=== PATIENT | female | born 2000 | race Caucasian/White ===

== ENCOUNTER 2020-04-26 03:43 | Emergency (ER) | payer BC ==
[2020-04-26] MEDS ORDERED: Sodium Chloride 0.9% 2.5 ML Syringe FLUSH PRN (04:19)
[2020-04-26] MEDS ORDERED: Sodium Chloride 0.9% 10 ML Syringe FLUSH PRN (04:19)
--- NOTE | 2020-04-26 04:27 | EDM.PDOC ---
ED HPI GENERAL MEDICAL PROBLEM - General Chief Complaint: Abdominal Pain Stated Complaint: LOWER LT PELVIC PAIN Time Seen by Provider: 04/26/20 03:51 Source of Information: Reports: Patient History Limitations: Reports: No Limitations - History of Present Illness INITIAL COMMENTS - FREE TEXT/NARRATIVE: 20-year-old female with past medical history of IUD placement and endometriosis presenting with pelvic pain and vaginal bleeding. She reports a 4-day history of bilateral low pelvic pain radiating to the bilateral lower back. This became much more severe around 4 hours prior to arrival. She developed vaginal spotting about 3 to 4 hours ago as well which she was not having for the past few days. She reports that she had her IUD placed about 3 months ago and has not had any vaginal bleeding up until today. She reports no fever, chills, nausea, vomiting, diarrhea, dysuria, urinary frequency, hematuria, vaginal itching or discharge. No other complaints. lower abdominal area Pain Score (Numeric/FACES): 8 - Related Data Allergies Allergy/AdvReac Type Severity Reaction Status Date / Time Penicillins Allergy Hives Verified 04/26/20 03:53 Home Meds: Home Meds Iud 04/26/20 [History] Past Medical History HEENT History: Reports: None Cardiovascular History: Reports: None Respiratory History: Reports: None Gastrointestinal History: Reports: None Genitourinary History: Reports: None BUSINESS SERVICES REPRESENTATIVE History: Reports: Endometriosis Other BUSINESS SERVICES REPRESENTATIVE History: IUD in place Musculoskeletal History: Reports: None Neurological History: Reports: None Psychiatric History: Reports: Anxiety, Depression Endocrine/Metabolic History: Reports: None Insulin Pump Model and Art Studio Teacher: None Hematologic History: Reports: None Immunologic History: Reports: None Oncologic (Cancer) History: Reports: None Dermatologic History: Reports: None - Infectious Disease History Infectious Disease History: Reports: None - Past Surgical History Head Surgeries/Procedures: Reports: None HEENT Surgical History: Reports: Adenoidectomy, Oral Surgery, Tonsillectomy, Other (See Below) GI Surgical History: Reports: None Social & Family History - Family History Family Medical History: Noncontributory - Tobacco Use Smoking Status *Q: Never Smoker - Caffeine Use Caffeine Use: Reports: Soda - Recreational Drug Use Recreational Drug Use: No ED ROS GENERAL - Review of Systems Review Of Systems: See Below Constitutional: Denies: Fever, Chills HEENT: Reports: No Symptoms Respiratory: Denies: Shortness of Breath Cardiovascular: Denies: Chest Pain Endocrine: Reports: No Symptoms GI/Abdominal: Reports: Abdominal Pain : Reports: Other (Vaginal spotting). Denies: Discharge, Dysuria, Flank Pain, Hematuria, Incontinence, Pain, Urgency, Urinary Retention Musculoskeletal: Reports: Back Pain Skin: Denies: Pruritis, Lesions Neurological: Denies: Headache Psychiatric: Reports: No Symptoms Hematologic/Lymphatic: Reports: No Symptoms Immunologic: Reports: No Symptoms ED EXAM, RENAL/ - Physical Exam Exam: See Below Text/Narrative:: Vital signs reviewed. Nursing notes reviewed. Constitutional: Awake, alert, non-distressed. Head: Normocephalic, atraumatic. Eyes: EOMI, conjunctiva normal, no discharge, no scleral icterus. Ears, Nose, Throat: External ears and nose normal, moist oral mucosa. Cardiovascular: 2+ radial pulse, capillary refill less than 2 seconds. Pulmonary: normal work of breathing, no accessory muscle use. Abdomen/GI: Soft, mild bilateral low abdominal pain, nondistended, no guarding or rigidity, no masses. Musculoskeletal: No deformities. Integumentary: Appropriate color for ethnicity, warm, dry, no pallor or jaundice, no rash. Neurologic: Alert, answering questions appropriately, normal speech, no facial droop, moving all extremities well. Psychiatric: Appropriate mood and affect, normal thought process. (Female) Exam: Normal External Exam, Vaginal Bleeding. No: Cervical Dilatation, Cervical Discharge, Cervical Lesions, Vaginal Discharge, Vaginal Lesions, Vaginal Tears Course - Vital Signs Text/Narrative:: Patient hemodynamically stable, afebrile, well-appearing, looks nontoxic. Differential diagnosis includes but is not limited to: Ectopic , dy sfunctional uterine bleeding, endometriosis, fibroids, coagulopathy, anemia, malignancy, STD/STI, cervicitis, UTI, pyelonephritis, etc. Speculum exam revealed a very tiny amount of dried blood but no active hemorrhage, no vaginal discharge, no cervical discharge/bleeding or abnormalities noted visually. Transvaginal pelvic ultrasound was unremarkable, normal blood flow visualized to both ovaries. CBC, INR, BMP reassuring. Normal hemoglobin. Urinalysis shows moderate blood, trace ketones, and small urobilinogen. No evidence of infection. Patient was treated with oral Percocet and felt better. Presentation seems consistent with dysfunctional uterine bleeding, endometriosis could also potentially be complicating the patient's presentation and causing some pain. Abdomen is soft and minimally tender, patient is vitally stable so my suspicion for surgical emergency or other intra-abdominal catastrophe is quite low at this moment. Patient already has a hormonal IUD in place and theref ore oral contraceptive therapy is obviated at this point. I would like for her to follow-up with her outside machinist helper or a local gynecology clinic in the next 1 to 2 weeks for reevaluation. Recommended [id number] ibuprofen and Tylenol as needed for pain. Plan: Patient is stable to discharge home with outpatient primary care or gynecology clinic follow-up. Strict emergency department return precautions were provided, patient indicated understanding. All questions were answered prior to departure. Discharged in good condition. Last Recorded V/S: Last Vital Signs Temp 36.2 C 04/26/20 05:00 Pulse 88 04/26/20 05:00 Resp 18 04/26/20 05:00 BP 110/80 04/26/20 05:00 Pulse Ox 98 04/26/20 05:00 - Orders/Labs/Meds Orders: Active Orders 24 hr Category Date Time Status Pelvic Exam, Set Up [RC] ASDIRECTED Care 04/26/20 04:23 Active Pulse Oximetry [RC] ASDIRECTED Care 04/26/20 04:19 Active CHLAMYDIA AND GONORRHEA BY TMA Stat Lab 04/26/20 04:45 Received Saline Lock Insert [OM.PC] Stat Oth 04/26/20 04:20 Ordered Labs: Laboratory Tests 04/26/20 04/26/20 04/26/20 Range/Units 03:55 03:55 04:30 WBC (4.0-11.0) K/uL RBC (4.30-5.90) M/uL Hgb (12.0-16.0) g/dL Hct (36.0-46.0) % MCV (80.0-98.0) fL MCH (27.0-32.0) pg MCHC (31.0-37.0) g/dL RDW Std Deviation (28.0-62.0) fl RDW Coeff of Cassius (11.0-15.0) % Plt Count (150-400) K/uL MPV (7.40-12.00) fL Neut % (Auto) (48.0-80.0) % Lymph % (Auto) (16.0-40.0) % [place] % (Auto) (0.0-15.0) % Eos % (Auto) (0.0-7.0) % Baso % (Auto) (0.0-1.5) % Neut # (Auto) (1.4-5.7) K/uL Lymph # (Auto) (0.6-2.4) K/uL [place] # (Auto) (0.0-0.8) K/uL Eos # (Auto) (0.0-0.7) K/uL Baso # (Auto) (0.0-0.1) K/uL Nucleated RBC % /100WBC Nucleated RBCs # K/uL INR 0.99 Sodium (136-145) mmol/L Potassium (3.5-5.1) mmol/L Chloride (98-107) mmol/L Carbon Dioxide (21.0-32.0) mmol/L BUN (7.0-18.0) mg/dL Creatinine (0.6-1.0) mg/dL Est Cr Clr Drug Dosing mL/min Estimated GFR (MDRD) ml/min Glucose (74-106) mg/dL Calcium (8.5-10.1) mg/dL Urine Color YELLOW Urine Appearance CLOUDY Urine pH 7.5 (5.0-8.0) Ur Specific [place] 1.020 (1.001-1.035) Urine Protein NEGATIVE (NEGATIVE) mg/dL Urine Glucose (UA) NEGATIVE (NEGATIVE) mg/dL Urine Ketones TRACE H (NEGATIVE) mg/dL Urine Occult Blood MODERATE H (NEGATIVE) Urine Nitrite NEGATIVE (NEGATIVE) Urine Bilirubin NEGATIVE (NEGATIVE) Urine Urobilinogen 2.0 H (<2.0) EU/dL Ur Leukocyte Esterase NEGATIVE (NEGATIVE) Urine RBC 1-3 (0-2/HPF) Urine WBC 0-2 (0-5/HPF) Ur Epithelial Cells FEW (NONE-FEW) Amorphous Sediment MODERATE (NEGATIVE) Urine Bacteria FEW (NEGATIVE) Urine HCG, Qual NEGATIVE (NEGATIVE) Lety species DNA (NEGATIVE) Gardnerella DNA Probe (NEGATIVE) Trichomonas DNA Probe (NEGATIVE) 04/26/20 04/26/20 04/26/20 Range/Units 04:30 04:30 04:45 WBC 6.95 (4.0-11.0) K/uL RBC 4.84 (4.30-5.90) M/uL Hgb 14.3 (12.0-16.0) g/dL Hct 42.5 (36.0-46.0) % MCV 87.8 (80.0-98.0) fL MCH 29.5 (27.0-32.0) pg MCHC 33.6 (31.0-37.0) g/dL RDW Std Deviation 39.4 (28.0-62.0) fl RDW Coeff of Cassius 12 (11.0-15.0) % Plt Count 264 (150-400) K/uL MPV 10.70 (7.40-12.00) fL Neut % (Auto) 61.1 (48.0-80.0) % Lymph % (Auto) 29.4 (16.0-40.0) % [place] % (Auto) 8.5 (0.0-15.0) % Eos % (Auto) 0.6 (0.0-7.0) % Baso % (Auto) 0.4 (0.0-1.5) % Neut # (Auto) 4.3 (1.4-5.7) K/uL Lymph # (Auto) 2.0 (0.6-2.4) K/uL [place] # (Auto) 0.6 (0.0-0.8) K/uL Eos # (Auto) 0.0 (0.0-0.7) K/uL Baso # (Auto) 0.0 (0.0-0.1) K/uL Nucleated RBC % 0.0 /100WBC Nucleated RBCs # 0 K/uL INR Sodium 138 (136-145) mmol/L Potassium 3.5 (3.5-5.1) mmol/L Chloride 103 (98-107) mmol/L Carbon Dioxide 23.1 (21.0-32.0) mmol/L BUN 12 (7.0-18.0) mg/dL Creatinine 1.0 (0.6-1.0) mg/dL Est Cr Clr Drug Dosing 76.47 mL/min Estimated GFR (MDRD) > 60.0 ml/min Glucose 94 (74-106) mg/dL Calcium 9.2 (8.5-10.1) mg/dL Urine Color Urine Appearance Urine pH (5.0-8.0) Ur Specific [place] (1.001-1.035) Urine Protein (NEGATIVE) mg/dL Urine Glucose (UA) (NEGATIVE) mg/dL Urine Ketones (NEGATIVE) mg/dL Urine Occult Blood (NEGATIVE) Urine Nitrite (NEGATIVE) Urine Bilirubin (NEGATIVE) Urine Urobilinogen (<2.0) EU/dL Ur Leukocyte Esterase (NEGATIVE) Urine RBC (0-2/HPF) Urine WBC (0-5/HPF) Ur Epithelial Cells (NONE-FEW) Amorphous Sediment (NEGATIVE) Urine Bacteria (NEGATIVE) Urine HCG, Qual (NEGATIVE) Lety species DNA NEGATIVE (NEGATIVE) Gardnerella DNA Probe NEGATIVE (NEGATIVE) Trichomonas DNA Probe NEGATIVE (NEGATIVE) Meds: Medications Discontinued Medications Generic Name Dose Route Start Last Admin Trade Name Freq PRN Reason Stop Dose Admin Oxycodone/Acetaminophen 1 tab 04/26/20 04:48 04/26/20 05:26 Percocet 325-5 Mg PO 04/26/20 04:49 1 tab ONETIME ONE Administration Sodium Chloride 10 ml 04/26/20 04:19 Saline Flush FLUSH ASDIRECTED PRN Keep Vein Open Sodium Chloride 2.5 ml 04/26/20 04:19 Saline Flush FLUSH ASDIRECTED PRN Keep Vein Open Departure - Departure Time of Disposition: 06:14 Disposition: Home, Self-Care 01 Condition: Good Clinical Impression: Pelvic pain in female, Abnormal uterine bleeding - Discharge Information *PRESCRIPTION DRUG MONITORING PROGRAM REVIEWED*: Not Applicable *COPY OF PRESCRIPTION DRUG MONITORING REPORT IN PATIENT ROBERTO: Not Applicable Instructions: Abnormal Uterine Bleeding, Pelvic Pain, Female Referrals: [facility] [Provider Group] - 1 Week (For follow-up of pelvic pain and bleeding) Forms: ED Department Discharge Additional Instructions: Thank you for choosing the [facility] emergency department in [place] for your medical needs today. It was a pleasure caring for you. You were seen in the emergency department for pelvic pain and vaginal bleeding. Your blood count, urinalysis, and pelvic swabs look reassuring, as does your pelvic ultrasound. At this point I feel that you can be safely discharged home. I recommend [id number] ibuprofen and acetaminophen as needed for pain. I would like for you to follow-up with a primary care or gynecology clinic in the next 1 to 2 weeks for follow-up of your pain and bleeding. If your pain worsens or if your bleeding increases, or if you have any other new or concerning symptoms, come back to the ER right away. Please return the emergency department immediately if your symptoms worsen or if you feel worse. The following information is given to patients seen in the emergency department who are being discharged. This information is to outline your options for follow-up care. We provide all patients seen in our emergency department with a follow-up referral. The need for follow-up, as well as the timing and circumstances, are variable depending upon the specifics of your emergency department visit. If you don't have a primary care physician on staff, we will provide you with a referral. We always advise you to contact your personal physician following an emergency department visit to inform them of the circumstance of the visit and for follow-up with them and/or the need for any referrals to a consulting specialist. The emergency department will also refer you to a specialist when appropriate. This referral assures that you have the opportunity for follow-up care with a specialist. All of these measure are taken in an effort to provide you with optimal care, which includes your follow-up. Under all circumstances we always encourage you to contact your private physician who remains a resource for coordinating your care. When calling for follow-up care, please make the office aware that this follow-up is from your recent emergency room visit. If for any reason you are refused follow-up, please contact the [facility] Emergency Department at and asked to speak to the emergency department charge nurse. If you do not have a primary care physician that is caring for you, you can contact these clinics below to set up an appointment to establish care: [facility] - Primary Care [address] [place] [id number] [address] Sepsis Event Note (ED) - Evaluation Sepsis Screening Result: No Definite Risk - Focused Exam Vital Signs: Vital Signs Temp Pulse Resp BP Pulse Ox 04/26/20 05:00 36.2 C 88 18 110/80 98 04/26/20 03:50 36.1 C 92 18 119/86 98 - My Orders Last 24 Hours: My Active Orders 04/26/20 04:19 Pulse Oximetry [RC] ASDIRECTED 04/26/20 04:20 Saline Lock Insert [OM.PC] Stat 04/26/20 04:23 Pelvic Exam, Set Up [RC] ASDIRECTED 04/26/20 04:45 CHLAMYDIA AND GONORRHEA BY TMA Stat - Assessment/Plan Last 24 Hours: My Active Orders 04/26/20 04:19 Pulse Oximetry [RC] ASDIRECTED 04/26/20 04:20 Saline Lock Insert [OM.PC] Stat 04/26/20 04:23 Pelvic Exam, Set Up [RC] ASDIRECTED 04/26/20 04:45 CHLAMYDIA AND GONORRHEA BY TMA Stat
[2020-04-26] MEDS ORDERED: Acetaminophen/oxyCODONE 325-5 MG Tab PO ONE (04:48)
[2020-04-26 04:50] LABS: BLOOD UREA NITROGEN,BUN 12 mg/dL (7.0-18.0); CARBON DIOXIDE,CO2 23.1 mmol/L (21.0-32.0); CHLORIDE,CL 103 mmol/L (98-107); GLUCOSE RANDOM 94 mg/dL (74-106); POTASSIUM,K 3.5 mmol/L (3.5-5.1); SODIUM,NA 138 mmol/L (136-145)
--- NOTE | 2020-04-26 06:10 | US ---
INDICATION: Bilateral lower pelvic pain with vaginal spotting. TECHNIQUE: Ultrasound pelvis transvaginal for better assessment or to better visualize the endometrium. Real-time sonographic images with spectral and color Doppler imaging of the ovaries were obtained. COMPARISON: None FINDINGS: Uterus: 6 x 4 x 3 cm. Normal echotexture of the myometrium. No masses. Endometrium: Transvaginal imaging was performed to better evaluate the endometrium. Endometrial thickness measures 2 mm. No sign of endometrial mass or fluid. IUD is present and appears in satisfactory position where visualized. Right ovary measures 4 x 4 x 3 cm and left ovary measures 2 x 2 x 2 cm. A 3 cm simple cyst is in the right ovary. No other adnexal lesion. Normal arterial and venous blood flow is demonstrated in both ovaries. Cul-de-sac: No significant free fluid. IMPRESSION: 1. IUD appears in satisfactory position where visualized. Otherwise unremarkable uterus and endometrium. No other finding to explain bleeding. 2. 3 cm simple right ovarian cyst without evidence of rupture. This does not require follow-up evaluation. Dictated by Demarco Campa MD @ Apr 26 2020 6:05AM Signed by Dr. Demarco Campa @ Apr 26 2020 6:08AM
[2020-04-27 12:06] LABS: C.TRACHOMATIS BY TMA Negative (Negative); N.GONORRHOEAE BY TMA Negative (Negative)
== END 2020-04-26 06:25 | disposition home or self-care (01) ==
LOC: MW.ED 03:43
DX: N93.9 Abnormal uterine and vaginal bleeding, unspecified (principal); R10.2 Pelvic and perineal pain; Z88.0 Allergy status to penicillin
CPT/HCPCS: 36415; 76856; 80048; 81001; 81025; 85025; 85610; 87480; 87491; 87510; 87591; 87660; 99284; A9270; 99283